=== PATIENT | male | born 1975 | race African-American/Black ===

== ENCOUNTER 2021-05-06 23:52 | Emergency (ER) | payer OTHER ==
[2021-05-07 00:01] VITALS: BP 181/105; PULSE 81; TEMP 98.1; BMI 31.5
== END 2021-05-07 00:58 | disposition home or self-care (01) ==
LOC: EDBD 23:52 → JER 23:52
DX: S22.41XA Multiple fractures of ribs, right side, initial encounter for closed fracture (principal); W17.89XA Other fall from one level to another, initial encounter
CPT/HCPCS: 99283-25